=== PATIENT | female | born 1985 | race Caucasian/White ===

== ENCOUNTER 2016-09-26 06:56 | Inpatient (IN) | payer OTHER ==
[2016-09-26] VITALS (9 sets, daily range): BP systolic 113–140; BP diastolic 56–77
[~2016-09-26] VITALS: Ht 160 cm; Wt 80.7 kg
[~2016-09-26 06:56] MED LIST: AUGMENTIN500 MG PO; Dilaudid PO; ENDOCET 5-3251 EACH PO; Feosol PO; Motrin PO; NATALCARE RX1 TABLE1 PO
[2016-09-26 08:37] LABS: EOSINOPHIL (%) 0.8 % (0-5); EOSINOPHIL COUNT 0.1 K/uL (0-0.3); HEMATOCRIT 29.1 % (36.0-46.0); IMMATURE GRANULOCYTE (%) 1.5 % (0.0-0.7); IMMATURE GRANULOCYTE COUNT 0.1 K/uL; INSTRUMENT ABS NEUTROPHIL CT 4.5 K/uL; LYMPHOCYTE COUNT 1.9 K/uL (1.0-2.8); MCH 24.5 PG (29.0-34.0); MCV 76.6 FL (83-99); MEAN PLAT.VOLUME 10.8 uM^3 (9.5-12.4); MONOCYTE (%) 10.7 % (3-12); MONOCYTE COUNT 0.8 K/uL (0-0.8); NEUTROPHIL (%) 61.2 % (45-76); NEUTROPHIL COUNT 4.5 K/uL (1.8-6.4); PLATELET COUNT 215 K/uL (156-360); RBC DIS.WIDTH-CV 15.5 % (11.8-14.6); RBC DIS.WIDTH-SD 42.3 % (39-53); WHITE BLOOD COUNT 7.4 K/uL (4.1-10.2)
[2016-09-27 03:11] VITALS: BP 109/65
[2016-09-27 07:11] LABS: EOSINOPHIL (%) 0.4 % (0-5); EOSINOPHIL COUNT 0.1 K/uL (0-0.3); HEMATOCRIT 27.3 % (36.0-46.0); IMMATURE GRANULOCYTE (%) 1.1 % (0.0-0.7); IMMATURE GRANULOCYTE COUNT 0.1 K/uL; INSTRUMENT ABS NEUTROPHIL CT 8.9 K/uL; LYMPHOCYTE COUNT 1.4 K/uL (1.0-2.8); MCH 24.9 PG (29.0-34.0); MCHC 32.6 G/DL (30.0-36.0); MCV 76.5 FL (83-99); MEAN PLAT.VOLUME 10.7 uM^3 (9.5-12.4); MONOCYTE (%) 11.6 % (3-12); MONOCYTE COUNT 1.4 K/uL (0-0.8); NEUTROPHIL (%) 74.5 % (45-76); NEUTROPHIL COUNT 8.9 K/uL (1.8-6.4); PLATELET COUNT 193 K/uL (156-360); RBC DIS.WIDTH-CV 15.6 % (11.8-14.6); RBC DIS.WIDTH-SD 42.6 % (39-53); RED BLOOD COUNT 3.57 M/uL (3.80-5.20); WHITE BLOOD COUNT 11.9 K/uL (4.1-10.2)
[2016-09-27 07:40] VITALS: BP 116/60
[2016-09-27 12:00] VITALS: BP 115/60
[2016-09-27 15:50] VITALS: BP 130/61
[2016-09-28 07:55] VITALS: BP 133/69
[2016-09-28] MEDS ORDERED: IBUPROFEN800 MG PO (09:05)
[2016-09-28] MEDS ORDERED: ENDOCET 5-3251 EACH PO (09:05)
[2016-09-28] MEDS ORDERED: CHROMAGEN,1 CAPSULE PO (09:05)
[2016-09-28 11:25] VITALS: BP 136/65
== END 2016-09-29 12:30 | disposition home or self-care (01) | DRG 766 ==
LOC: 2WEST 06:56 → 2SOUTH 12:23 → 2WEST 09-28 05:55
PROVIDERS: Obstetrics & Gynecology
DX: O34.211 Maternal care for low transverse scar from previous cesarean delivery (principal); D50.9 Iron deficiency anemia, unspecified; O69.81X0 Labor and delivery complicated by cord around neck, without compression, not applicable or unspecified; O99.02 Anemia complicating childbirth; O99.284 Endocrine, nutritional and metabolic diseases complicating childbirth; Z30.2 Encounter for sterilization; Z37.0 Single live birth; Z3A.39 39 weeks gestation of pregnancy
CPT/HCPCS: 85025; 86900; 86901; 88302; J0690; J1200; J2274; J2405; J3010; J7120